=== PATIENT | male | born 1975 | race African-American/Black ===

== ENCOUNTER 2020-05-30 10:47 | Observation (INO) | payer OTHER ==
--- NOTE | 2020-05-30 11:03 | ER Document Report ---
ED General - General Chief Complaint: Chest Pain Stated Complaint: CHEST PAIN Time Seen by Provider: 05/30/20 10:54 Notes: 44-year-old male smoker with other medical history being irrelevant presents with chest pressure onset about 30 minutes ago after receiving a phone call that was troubling from his fiance. He says it hurts in a severe fashion radiates to his shoulders and he has shortness of breath and sweatiness. No vomiting. No leg pain or swelling no pleuritic component. No history of aortic disease or cardiac disease. - Related Data Allergies/Adverse Reactions: iodine Allergy (Verified 05/30/20 11:39) Penicillins Allergy (Verified 05/30/20 11:39) shellfish derived Adverse Reaction (Verified 05/30/20 11:39) Past Medical History - General Information source: Patient - Social History Smoking Status: Current Every Day Smoker Smoking Education Provided: Yes - The patient ED visit today was directly related to their abuse of tobacco. Family History: None Physical Exam - Vital signs Vitals: Temp Pulse Resp BP Pulse Ox 98.2 F 74 18 114/75 99 05/30/20 10:55 05/30/20 10:55 05/30/20 10:55 05/30/20 10:55 05/30/20 10:55 Course - Re-evaluation Re-evalutation: 05/30/20 11:34 Patient presents with concerning chest pain. His EKG is nonspecific but not normal. His heart score is about 4. We will give him aspirin nitroglycerin. We will repeat his EKG and check labs I doubt this is dissection pancreatitis or other severe cause of chest pain 05/30/20 14:56 Labs negative. Pain better with nitro and aspirin. Patient's heart score is [address] Julian will be admitted. Doubt PE dissection pancreatitis Pain-free in the ED. Accepted for admission. - Vital Signs Vital signs: Temp Pulse Resp BP Pulse Ox 98.2 F 74 23 H 110/79 98 05/30/20 10:55 05/30/20 10:55 05/30/20 13:01 05/30/20 13:01 05/30/20 13:00 - Laboratory Result Diagrams: 05/30/20 11:10 05/30/20 11:10 Laboratory results interpreted by me: 05/30/20 05/30/20 11:10 11:10 MCV 77 L MCH 26.7 L RDW 14.4 H Sodium 136.9 L Potassium 3.5 L Creatine Kinase 256 H Total Protein 8.3 H - Diagnostic Test Radiology reviewed: Pending - EKG Interpretation by Me EKG shows normal: Sinus rhythm Rate: Normal Rhythm: NSR When compared to previous EKG there are: Previous EKG unavailable - 1.: RSR prime in V2 without true ST elevation 2.: Same unchanged sinus rhythm narrow complexes no ST-T wave changes Discharge - Discharge Clinical Impression: Chest pain, unspecified Qualifiers: Chest pain type: other chest pain Qualified Code(s): R07.89 - Other chest pain Condition: Fair Disposition: ADMITTED OBSERVATION Admitting Provider: Nayely (Hospitalist) Unit Admitted: Telemetry
[2020-05-30] MEDS ORDERED: NITROGLYCERIN 0.4 MG/TAB 25 TAB/BOTTLE SL PRN ×2 (11:06→14:14)
[2020-05-30] MEDS ORDERED: ASPIRIN 325 MG TABLET PO ONE (11:06)
[2020-05-30 11:21] LABS: ABSOLUTE BASOPHILS # (AUTO) 0.1 10^3/uL (0.0-0.2); ABSOLUTE EOSINOPHILS # (AUTO) 0.2 10^3/uL (0.0-0.6); ABSOLUTE MONOCYTES (AUTO) 0.6 10^3/uL (0.1-1.4); ABSOLUTE NEUT (AUTO) 4.4 10^3/uL (1.7-8.2); BASOPHILS % (AUTO) 1.4 % (0-2); EOSINOPHILS % (AUTO) 2.8 % (0-6); HEMATOCRIT 41.5 % (37.9-51.0); HEMOGLOBIN 14.3 g/dL (13.5-17.0); LYMPHOCYTES % (AUTO) 26.7 % (13-45); MEAN CORPUSCULAR HEMOGLOBIN 26.7 pg (27.0-33.4); MEAN CORPUSCULAR HGB CONC 34.5 g/dL (32.0-36.0); MEAN CORPUSCULAR VOLUME 77 fl (80-97); MONOCYTES % (AUTO) 8.8 % (3-13); PLATELET COUNT 226 10^3/uL (150-450); RED BLOOD COUNT 5.37 10^6/uL (4.35-5.55); RED CELL DISTRIBUTION WIDTH 14.4 % (11.5-14.0); SEGMENTED NEUTROPHILS % (AUTO) 60.3 % (42-78); TOTAL CELLS COUNTED % (AUTO) 100 %; WHITE BLOOD COUNT 7.3 10^3/uL (4.0-10.5)
[2020-05-30 11:45] LABS: ALBUMIN 4.9 g/dL (3.5-5.0); ALKALINE PHOSPHATASE 76 U/L (38-126); ANION GAP 7 (5-19); ASPARTATE AMINO TRANSFERASE 29 U/L (17-59); BILIRUBIN,TOTAL 0.9 mg/dL (0.2-1.3); BLOOD UREA NITROGEN 16 mg/dL (7-20); CARBON DIOXIDE 28 mmol/L (22-30); CHLORIDE 102 mmol/L (98-107); CREATINE KINASE 256 U/L (55-170); GLUCOSE 101 mg/dL (75-110); POTASSIUM 3.5 mmol/L (3.6-5.0); TOTAL PROTEIN 8.3 g/dL (6.3-8.2)
[2020-05-30 11:55] LABS: CREATINE KINASE MB 1.27 ng/mL (<4.55); TROPONIN I < 0.012 ng/mL
[2020-05-30] MEDS ORDERED: TEMAZEPAM 15 MG CAPSULE PO PRN (14:11)
[2020-05-30] MEDS ORDERED: MAGNESIUM HYDROXIDE SUSP 30 ML UDCUP PO PRN (14:11)
[2020-05-30] MEDS ORDERED: PROMETHAZINE HCL INJ 25 MG/1 ML VIAL IV PRN (14:11)
[2020-05-30] MEDS ORDERED: ACETAMINOPHEN 325 MG TABLET PO PRN (14:11)
[2020-05-30] MEDS ORDERED: OXYCODONE-ACETAMINOPHEN 5-325 MG TABLET PO PRN (14:11)
[2020-05-30] MEDS ORDERED: IPRATROPIUM/ALBUTEROL 0.5-2.5 MG/3 ML AMPUL NEB PRN (14:11)
[2020-05-30] MEDS ORDERED: ONDANSETRON HCL INJ/PF 4 MG/2 ML SDV IV PRN (14:11)
[2020-05-30] MEDS ORDERED: METOPROLOL TARTRATE PF/INJ 5 MG/5 ML SDV IV PRN (14:13)
[2020-05-30] MEDS ORDERED: MORPHINE SULFATE 10 MG/ML INJ IV PRN (14:14)
[2020-05-30 15:23] LABS: CHOLESTEROL 197.35 mg/dL (0-200); TRIGLYCERIDES 82 mg/dL (<150)
[2020-05-30 15:33] LABS: DIRECT LDL 134 mg/dL (<100)
[2020-05-30 15:40] LABS: FREE T4 (FREE THYROXINE) 1.2 ng/dL (0.78-2.19)
[2020-05-30 15:54] LABS: THYROID STIMULATING HORMONE 0.38 uIU/mL (0.47-4.68)
[2020-05-30 16:09] VITALS: BP 124/75
--- NOTE | 2020-05-30 16:27 | EKG REPORT ---
SEVERITY:- BORDERLINE ECG - SINUS RHYTHM ST ELEV, PROBABLE NORMAL EARLY REPOL PATTERN LEFT ATRIAL ABNORMALITY : Confirmed by: Moises Mckeon MD 30-May-2020 16:27:08
--- NOTE | 2020-05-30 16:28 | EKG REPORT ---
SEVERITY:- BORDERLINE ECG - SINUS ARRHYTHMIA LEFT ATRIAL ABNORMALITY : Confirmed by: Moises Mckeon MD 30-May-2020 16:27:51
[2020-05-30] MEDS ORDERED: FAMOTIDINE 20 MG TABLET PO SCH (22:00)
[2020-05-31] MEDS ORDERED: ENOXAPARIN SODIUM INJ 40 MG/0.4 ML DISP.SYRIN SUBCUT SCH (10:00)
== END 2020-05-30 16:00 | disposition left against medical advice (07) ==
LOC: ER 10:47 → EH 13:05
PROVIDERS: ADMIT Internal Medicine; ATTEND Internal Medicine
DX: R07.89 Other chest pain (principal); F17.200 Nicotine dependence, unspecified, uncomplicated; R06.02 Shortness of breath; R61 Generalized hyperhidrosis
CPT/HCPCS: 36415; 80053; 80061; 82550; 82553; 83036; 84439; 84443; 84484; 85025; 93005; 93010; 99285

== ENCOUNTER 2020-05-31 13:31 | Observation (INO) | payer SELFPAY ==
--- NOTE | 2020-05-31 13:53 | ER Document Report ---
ED General - General Chief Complaint: Chest Pain Stated Complaint: CHEST PAIN Time Seen by Provider: 05/31/20 13:47 Notes: 44-year-old male seen here yesterday for concerning chest pain heart score 5- troponin abnormal EKG better with nitro admitted then AMA back for care. States that he got very nervous and scared so he left. In speaking with hospitalist Dr. Wolfe the patient was scheduled for a stress test at 1. He had a surgical consult for chronic foot wounds and a cards consult for chest pain which recommended stress test at 1 PM. He is currently having pain and is quite anxious.. - Related Data Allergies/Adverse Reactions: iodine Allergy (Verified 05/31/20 13:42) Penicillins Allergy (Verified 05/31/20 13:42) shellfish derived Adverse Reaction (Verified 05/31/20 13:42) Home Medications: atb for infected tooth Past Medical History - Social History Smoking Status: Current Every Day Smoker Chew tobacco use (# tins/day): No Frequency of alcohol use: None Drug Abuse: None Family History: None Patient has homicidal ideation: No Review of Systems - Review of Systems Notes: REVIEW OF SYSTEMS GEN: Denies fever, chills, weight loss ENT: Denies sore throat, nasal discharge, ear pain EYES: Denies blurry vision, eye pain, discharge CV: Pain RESP: Denies cough, shortness of breath, wheezing GI: Denies abdominal pain, nausea, vomiting, diarrhea MSK: Denies joint pain/swelling, edema, SKIN: Denies rash, skin lesions LYMPH: Denies swollen glands/lymph nodes NEURO: Denies headache, focal weakness or numbness, dizziness PSYCH: Denies depression, suicidal or homicidal ideation PHYSICAL EXAMINATION General: Full clutching chest. No acute distress, well-nourished Head: Atraumatic, normocephalic ENT: Mouth normal, oropharynx moist, no exudates or tonsillar enlargement Eyes: Conjunctiva normal, pupils equal, lids normal Neck: No JVD, supple, no guarding CVS: Normal rate, regular rhythm, no murmurs Resp: No resp distress, equal and normal breath sounds bilaterally GI: Nondistended, soft, no tenderness to palpation, no rebound or guarding Ext: No deformities, no edema, normal range of motion in upper and lower ext Back: No CVA or midline TTP Skin: No rash, warm Lymphatic: No lymphadeopathy noted Neuro: Awake, alert. Face symmetric. GCS 15. Physical Exam - Vital signs Vitals: Temp 99.3 F 05/31/20 13:42 Course - Re-evaluation Re-evalutation: 05/31/20 14:03 Chest pain AMA now back chest pain is back. Could be anxiety would still need stress test EKG unchanged Trope pending Will admit to hospitalist 05/31/20 15:46 Discussed with Nayely for admission - Vital Signs Vital signs: Temp Pulse Resp BP Pulse Ox 99.3 F 20 103/60 98 05/31/20 13:42 05/31/20 15:01 05/31/20 15:01 05/31/20 15:01 - Laboratory Result Diagrams: 05/31/20 15:04 05/31/20 15:04 Laboratory results interpreted by me: 05/31/20 05/31/20 15:04 15:04 MCV 78 L MCH 26.5 L Creatinine 1.61 H Est GFR ( Amer) 57 L Est GFR (MDRD) Non-Af 47 L - Diagnostic Test Radiology reviewed: Image reviewed, Reports reviewed - EKG Interpretation by Me EKG shows normal: Sinus rhythm Rate: Normal Rhythm: NSR - R prime V2 no ST depression Unchanged from prior When compared to previous EKG there are: No significant change Discharge - Discharge Clinical Impression: Chest pain, unspecified Qualifiers: Chest pain type: unspecified Qualified Code(s): R07.9 - Chest pain, unspecified Condition: Good Disposition: ADMITTED OBSERVATION Admitting Provider: [place] (Hospitalist) Unit Admitted: Telemetry
[2020-05-31] MEDS ORDERED: ASPIRIN 81 MG TABLET, CHEWABLE PO ONE (13:54)
--- NOTE | 2020-05-31 13:55 | ER Document Report ---
ED Medical Screen (RME) - General Chief Complaint: Chest Pain Stated Complaint: CHEST PAIN Time Seen by Provider: 05/31/20 13:47 Notes: HPI: 44-year-old male presenting to the emergency department with continued chest discomfort and shortness of breath. States he was seen yesterday and was to be admitted to the hospital for further evaluation of chest pain that began yesterday after an argument with his fiance but became scared about having possible surgery and decided to leave AGAINST MEDICAL ADVICE. States symptoms continued today. PHYSICAL EXAMINATION: Lung sounds are clear to auscultation, regular rate and rhythm. Patient is tearful and scared Discussed with Dr. Wilson, Attending I have greeted and performed a rapid initial assessment of this patient. A comprehensive ED assessment and evaluation of the patient, analysis of test results and completion of medical decision making process will be conducted by an additional ED providers. - Related Data Allergies/Adverse Reactions: iodine Allergy (Verified 05/31/20 13:42) Penicillins Allergy (Verified 05/31/20 13:42) shellfish derived Adverse Reaction (Verified 05/31/20 13:42) Home Medications: atb for infected tooth Past Medical History - Social History Chew tobacco use (# tins/day): No Frequency of alcohol use: None Drug Abuse: None Physical Exam - Vital signs Vitals: Temp 99.3 F 05/31/20 13:42 Course - Vital Signs Vital signs: Temp Pulse Resp BP Pulse Ox 99.3 F 05/31/20 13:42 Doctor's Discharge - Discharge Clinical Impression: Chest pain, unspecified Qualifiers: Chest pain type: unspecified Qualified Code(s): R07.9 - Chest pain, unspecified
[2020-05-31] MEDS ORDERED: NITROGLYCERIN 0.4 MG/TAB 25 TAB/BOTTLE SL PRN (14:37)
[2020-05-31 15:20] LABS: ABSOLUTE BASOPHILS # (AUTO) 0.1 10^3/uL (0.0-0.2); ABSOLUTE EOSINOPHILS # (AUTO) 0.2 10^3/uL (0.0-0.6); ABSOLUTE LYMPHOCYTES (AUTO) 1.6 10^3/uL (0.5-4.7); ABSOLUTE MONOCYTES (AUTO) 0.6 10^3/uL (0.1-1.4); ABSOLUTE NEUT (AUTO) 4.4 10^3/uL (1.7-8.2); BASOPHILS % (AUTO) 1.4 % (0-2); EOSINOPHILS % (AUTO) 3.3 % (0-6); HEMATOCRIT 42.2 % (37.9-51.0); HEMOGLOBIN 14.4 g/dL (13.5-17.0); LYMPHOCYTES % (AUTO) 23.1 % (13-45); MEAN CORPUSCULAR HEMOGLOBIN 26.5 pg (27.0-33.4); MEAN CORPUSCULAR HGB CONC 34.2 g/dL (32.0-36.0); MEAN CORPUSCULAR VOLUME 78 fl (80-97); MONOCYTES % (AUTO) 8.6 % (3-13); PLATELET COUNT 234 10^3/uL (150-450); RED BLOOD COUNT 5.44 10^6/uL (4.35-5.55); SEGMENTED NEUTROPHILS % (AUTO) 63.6 % (42-78); TOTAL CELLS COUNTED % (AUTO) 100 %; WHITE BLOOD COUNT 6.8 10^3/uL (4.0-10.5)
[2020-05-31 15:26] LABS: INTERNATIONAL RATION (INR) 1.01; PROTHROMBIN TIME 13.3 SEC (11.4-15.4)
[2020-05-31 15:39] LABS: ALBUMIN 4.7 g/dL (3.5-5.0); ALKALINE PHOSPHATASE 64 U/L (38-126); ANION GAP 7 (5-19); ASPARTATE AMINO TRANSFERASE 24 U/L (17-59); BILIRUBIN,TOTAL 0.7 mg/dL (0.2-1.3); BLOOD UREA NITROGEN 15 mg/dL (7-20); CALCIUM 9.7 mg/dL (8.4-10.2); CARBON DIOXIDE 30 mmol/L (22-30); CHLORIDE 100 mmol/L (98-107); GLUCOSE 94 mg/dL (75-110); POTASSIUM 4.2 mmol/L (3.6-5.0)
[2020-05-31] MEDS ORDERED: OXYCODONE-ACETAMINOPHEN 5-325 MG TABLET PO PRN (15:39)
[2020-05-31] MEDS ORDERED: PROMETHAZINE HCL INJ 25 MG/1 ML VIAL IV PRN (15:39)
[2020-05-31] MEDS ORDERED: TEMAZEPAM 7.5 MG CAPSULE PO PRN (15:39)
[2020-05-31] MEDS ORDERED: ONDANSETRON HCL INJ/PF 4 MG/2 ML SDV IV PRN (15:39)
[2020-05-31] MEDS ORDERED: IPRATROPIUM/ALBUTEROL 0.5-2.5 MG/3 ML AMPUL NEB PRN (15:39)
[2020-05-31] MEDS ORDERED: NORMAL SALINE 1000 ML 1,000 ML IV PRN ×2 (15:39→18:32)
[2020-05-31] MEDS ORDERED: ACETAMINOPHEN 325 MG TABLET PO PRN (15:39)
[2020-05-31] MEDS ORDERED: MORPHINE SULFATE 10 MG/ML INJ IV PRN (15:43)
[2020-05-31] MEDS ORDERED: METOPROLOL TARTRATE PF/INJ 5 MG/5 ML SDV IV PRN (15:47)
[2020-05-31] MEDS ORDERED: HYDRALAZINE HCL INJ/PF 20 MG/1 ML SDV IV PRN (15:48)
[2020-05-31] MEDS: TERBINAFINE HCL 250 MG TABLET PO SCH (17:35)
--- NOTE | 2020-05-31 18:21 | EKG REPORT ---
SEVERITY:- BORDERLINE ECG - SINUS RHYTHM ST ELEV, PROBABLE NORMAL EARLY REPOL PATTERN LA ENLARGEMENT : Confirmed by: Moises Mckeon MD 31-May-2020 18:20:28
--- NOTE | 2020-05-31 18:31 | PDOC H&P ---
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 Today he is presenting to ED complaining of chest pain, epigastric, pressure- like, lasted about 30 minutes, constant, radiating to shoulder, associated with shortness of breath and diaphoresis. Denies any headache, vision changes, numbness, tingling, vomiting, abdominal pain, diarrhea, constipation, urinary symptoms, orthopnea, proximal nocturnal dyspnea, weight changes, lightheadedness, palpitation, syncope or presyncope. In ED troponins were negative and EKG did not show any significant changes. Social History Smoking Status: Current Every Day Smoker Electronic Cigarette use?: No Family History Family History: None Parental Family History Reviewed: Yes Children Family History Reviewed: Yes Sibling(s) Family History Reviewed.: Yes Medication/Allergy Home Medications: RX: Fluoxetine HCl 20 mg PO QAM 30 Days #30 capsule 06/01/20 RX: Pantoprazole Sodium 40 mg PO DAILY 28 Days #28 tablet. 06/01/20 RX: Terbinafine HCl [Lamisil 250 mg Tablet] 250 mg PO DAILY 12 Days #12 tablet 06/01/20 Allergies/Adverse Reactions: iodine Allergy (Verified 05/31/20 13:42) Penicillins Allergy (Verified 05/31/20 13:42) shellfish derived Adverse Reaction (Verified 05/31/20 13:42) Review of Systems Review of Systems: as per hpi Physical Exam Vital Signs: Temp Pulse Resp BP Pulse Ox 99.0 F 82 25 H 119/73 96 05/31/20 18:01 05/31/20 13:41 05/31/20 18:01 05/31/20 18:01 05/31/20 18:01 Intake & Output 05/30/20 05/31/20 06/01/20 06:59 06:59 06:59 Weight 83.915 kg General appearance: PRESENT: mild distress Head exam: PRESENT: atraumatic, normocephalic Respiratory exam: PRESENT: clear to auscultation elisabeth, tachypnea. ABSENT: rales, rhonchi, wheezes Cardiovascular exam: PRESENT: RRR, tachycardia. ABSENT: diastolic murmur, rubs, systolic murmur GI/Abdominal exam: PRESENT: normal bowel sounds, soft. ABSENT: distended, guarding, mass, organolmegaly, rebound, tenderness Extremities exam: PRESENT: full ROM, other - Severe bilateral tinea pedis.. ABSENT: calf tenderness, clubbing, pedal edema Neurological exam: PRESENT: alert, awake, oriented to person, oriented to place, oriented to time, oriented to situation, CN II-XII grossly intact. ABSENT: motor sensory deficit Results Laboratory Results: 05/31/20 15:04 05/31/20 15:04 05/31/20 05/31/20 15:04 15:04 WBC 6.8 RBC 5.44 Hgb 14.4 Hct 42.2 MCV 78 L MCH 26.5 L MCHC 34.2 RDW 14.0 Plt Count 234 Seg Neutrophils % 63.6 Sodium 137.2 Potassium 4.2 Chloride 100 Carbon Dioxide 30 Anion Gap 7 BUN 15 Creatinine 1.61 H Est GFR ( Amer) 57 L Glucose 94 Calcium 9.7 Total Bilirubin 0.7 AST 24 Alkaline Phosphatase 64 Total Protein 8.0 Albumin 4.7 05/31/20 15:04 Troponin I < 0.012 Assessment and Plan - Diagnosis (1) Chest pain, unspecified Qualifiers: Chest pain type: unspecified Qualified Code(s): R07.9 - Chest pain, unspecified Is this a current diagnosis for this admission?: Yes Plan: Unlikely cardiac. Denies any personal or family history of CAD. Denies any history of hypertension, dyslipidemia or diabetes. History of tobacco abuse. Admit to telemetry, trend troponins, antiplatelets, statins, sublingual nitroglycerin, IV morphine, beta-blockers, SHAILESH, stress test for further risk stratification. (2) Tinea pedis Qualifiers: Laterality: bilateral Qualified Code(s): B35.3 - Tinea pedis Is this a current diagnosis for this admission?: Yes Plan: Severe bilateral tinea pedis. 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 We will start on terbinafine, monitor LFTs. Outpatient rate setter follow-up. Good hygiene recommended. (3) Tobacco abuse Is this a current diagnosis for this admission?: Yes Plan: Extensively counseled on quitting. NicoDerm patch provided. (4) DANA (acute kidney injury) Is this a current diagnosis for this admission?: Yes Plan: Prerenal. Mostly due to nausea vomiting. Cautious volume restriction guided by volume status. Monitor electrolytes replace as needed. Monitor volume status. Avoid nephrotoxic meds. (5) Depression with anxiety Is this a current diagnosis for this admission?: Yes
[2020-05-31] MEDS: NICOTINE 21 MG/24 HR PATCH.TD24 TD SCH (19:57)
[2020-05-31] MEDS ORDERED: ATORVASTATIN CALCIUM 40 MG TABLET PO SCH (22:00)
[2020-05-31] MEDS: FAMOTIDINE 20 MG TABLET PO SCH (23:25)
[2020-05-31] MEDS: ENOXAPARIN SODIUM INJ 80 MG/0.8 ML DISP.SYRIN SUBCUT SCH (23:25)
[2020-06-01 08:14] LABS: ABSOLUTE BASOPHILS # (AUTO) 0.1 10^3/uL (0.0-0.2); ABSOLUTE EOSINOPHILS # (AUTO) 0.2 10^3/uL (0.0-0.6); ABSOLUTE LYMPHOCYTES (AUTO) 1.5 10^3/uL (0.5-4.7); ABSOLUTE MONOCYTES (AUTO) 0.5 10^3/uL (0.1-1.4); ABSOLUTE NEUT (AUTO) 3.3 10^3/uL (1.7-8.2); BASOPHILS % (AUTO) 1.2 % (0-2); EOSINOPHILS % (AUTO) 3.5 % (0-6); HEMATOCRIT 41.3 % (37.9-51.0); HEMOGLOBIN 14.1 g/dL (13.5-17.0); LYMPHOCYTES % (AUTO) 26.5 % (13-45); MEAN CORPUSCULAR HEMOGLOBIN 26.4 pg (27.0-33.4); MEAN CORPUSCULAR HGB CONC 34.2 g/dL (32.0-36.0); MEAN CORPUSCULAR VOLUME 77 fl (80-97); MONOCYTES % (AUTO) 8.8 % (3-13); PLATELET COUNT 202 10^3/uL (150-450); RED BLOOD COUNT 5.35 10^6/uL (4.35-5.55); RED CELL DISTRIBUTION WIDTH 14.5 % (11.5-14.0); TOTAL CELLS COUNTED % (AUTO) 100 %; WHITE BLOOD COUNT 5.6 10^3/uL (4.0-10.5)
[2020-06-01 08:36] LABS: ALBUMIN 4.4 g/dL (3.5-5.0); ALKALINE PHOSPHATASE 66 U/L (38-126); ANION GAP 8 (5-19); ASPARTATE AMINO TRANSFERASE 24 U/L (17-59); BILIRUBIN,TOTAL 0.6 mg/dL (0.2-1.3); BLOOD UREA NITROGEN 21 mg/dL (7-20); CALCIUM 9.5 mg/dL (8.4-10.2); CARBON DIOXIDE 25 mmol/L (22-30); CHLORIDE 104 mmol/L (98-107); GLUCOSE 98 mg/dL (75-110); POTASSIUM 3.8 mmol/L (3.6-5.0); TOTAL PROTEIN 7.5 g/dL (6.3-8.2)
[2020-06-01] MEDS ORDERED: DOCUSATE SODIUM 100 MG CAPSULE PO SCH (10:00)
[2020-06-01] MEDS ORDERED: ASPIRIN 81 MG TABLET, CHEWABLE PO SCH (10:00)
[2020-06-01] MEDS: FAMOTIDINE 20 MG TABLET PO SCH (12:45)
[2020-06-01] MEDS: TERBINAFINE HCL 250 MG TABLET PO SCH (12:46)
[2020-06-01] MEDS: NICOTINE 21 MG/24 HR PATCH.TD24 TD SCH (12:46)
[2020-06-01] MEDS: ENOXAPARIN SODIUM INJ 80 MG/0.8 ML DISP.SYRIN SUBCUT SCH (12:47)
[2020-06-01] MEDS ORDERED: REGADENOSON INJ 0.4 MG/5 ML DISP.SYRIN IV ONE (13:36)
[2020-06-01 14:54] LABS: APPEARANCE,URINE CLEAR; BILIRUBIN,URINE NEGATIVE (NEGATIVE); COLOR,URINE YELLOW; GLUCOSE, URINE NEGATIVE (NEGATIVE); KETONES,URINE NEGATIVE (NEGATIVE); LEUKOCYTE ESTERASE,URINE NEGATIVE (NEGATIVE); NITRITE,URINE NEGATIVE (NEGATIVE); PROTEIN,URINE NEGATIVE (NEGATIVE); URINE SPECIFIC GRAVITY 1.013; UROBILINOGEN,URINE NEGATIVE mg/dL (<2.0)
[2020-06-01] MEDS ORDERED: FLUOXETINE HCL 20 MG CAPSULE PO SCH (17:00)
[2020-06-01 21:52] VITALS: BP 121/63
--- NOTE | 2020-06-03 01:22 | DRAGON STRESS TEST REPORT ---
Intravenous Lexiscan Cardiolite stress test using single photon emmision computerized tomography. Date of procedure: .Ordering Provider: Patient's status: In Patient. Indication: Chest pain. Coronary risk factors: Age. Resting EKG: Sinus Rhythm Within normal limits. Stress EKG: No changes of ischemia. The patient had no chest pain or discomfort, and there were no arrhythmias seen. Reason for termination: Protocol. Conclusions: Normal EKG and hemodynamic response to IV Lexiscan. Nuclear data: At rest the patient was given 12.66 millicuries of technetium 99m sestamibi injected intravenously. As per protocol rest non gated SPECT images were obtained. Subsequently the patient was given intravenous Lexiscan at a dose of 0.4 mg in 5 mL intravenously, followed by flush with normal saline. Subsequently the stress dose of 36.8 millicuries of technetium 99m sestamibi was injected intravenously. As per protocol stress gated images were obtained. Nuclear interpretation: Review of images showed that all segments of the myocardium had normal perfusion at rest, and normal perfusion post stress with IV Lexiscan. All segments of the myocardium had normal motion, contraction, and thickening by gated study. T. I D. ratio was normal at 1.15. There is no transient ischemic dilatation of the left ventricle. Computer read rest, and stress left ventricular ejection fraction were 51 %, and 52 %, respectively. Visually both the stress and rest ejection fractions were normal, and greater than 55%. Conclusion: 1. There is no scintigraphic evidence of Lexiscan induced myocardial ischemia. 2. There is no scintigraphic evidence of myocardial infarction/scar. [facility]
--- NOTE | 2020-06-03 14:18 | PDOC H&P ---
History of Present Illness Admission Date/PCP: 05/31/20 15:50 Past Medical History Psychiatric Medical History: Reports: Depression Social History Smoking Status: Current Every Day Smoker Electronic Cigarette use?: No Drugs: Marijuana - Advance Directive Resuscitation Status: Full Code Family History Family History: None Parental Family History Reviewed: Yes Children Family History Reviewed: Yes Sibling(s) Family History Reviewed.: Yes Medication/Allergy Home Medications: Fluoxetine HCl 20 mg PO QAM 30 Days #30 capsule 06/01/20 Pantoprazole Sodium 40 mg PO DAILY 28 Days #28 tablet. 06/01/20 Terbinafine HCl [Lamisil 250 mg Tablet] 250 mg PO DAILY 12 Days #12 tablet 06/01/20 Allergies/Adverse Reactions: iodine Allergy (Verified 05/31/20 13:42) Penicillins Allergy (Verified 05/31/20 13:42) shellfish derived Adverse Reaction (Verified 05/31/20 13:42) Physical Exam Vital Signs: Temp Pulse Resp BP Pulse Ox 98.7 F 61 18 121/63 98 06/01/20 21:49 06/01/20 21:49 06/01/20 21:49 06/01/20 21:49 06/01/20 21:49 Intake & Output 06/02/20 06/03/20 06/04/20 06:59 06:59 06:59 Intake Total 1640 Balance 1640 Results Laboratory Results: 06/01/20 07:53 06/01/20 07:53 05/31/20 05/31/20 06/01/20 15:04 18:49 00:50 Troponin I < 0.012 < 0.012 < 0.012 06/01/20 07:53 Troponin I < 0.012 Assessment and Plan - Diagnosis (1) Chest pain, unspecified Qualifiers: Chest pain type: unspecified Qualified Code(s): R07.9 - Chest pain, unspecified Is this a current diagnosis for this admission?: Yes (2) Tinea pedis Qualifiers: Laterality: bilateral Qualified Code(s): B35.3 - Tinea pedis Is this a current diagnosis for this admission?: Yes (3) Tobacco abuse Is this a current diagnosis for this admission?: Yes (4) DANA (acute kidney injury) Is this a current diagnosis for this admission?: Yes (5) Depression with anxiety Is this a current diagnosis for this admission?: Yes
--- NOTE | 2020-06-03 14:27 | PDOC DISCHARGE SUMMARY ---
Impression - Admit/DC Date/PCP Admission Date/Primary Care Provider: 05/31/20 15:50 Discharge Date: 06/01/20 - Discharge Diagnosis (1) Chest pain, unspecified Is this a current diagnosis for this admission?: Yes (2) Tinea pedis Is this a current diagnosis for this admission?: Yes (3) Tobacco abuse Is this a current diagnosis for this admission?: Yes (4) DANA (acute kidney injury) Is this a current diagnosis for this admission?: Yes (5) Depression with anxiety Is this a current diagnosis for this admission?: Yes - Additional Information Resuscitation Status: Full Code Discharge Diet: As Tolerated Discharge Activity: Activity As Tolerated Referrals: LORENA MASON MD [NO LOCAL MD] - 06/07/20 1:30 pm (PLEASE STOP BY OFFICE PRIOR TO VISIT TO FILL OUT NEW PATIENT PAPERWORK AND HAVE THEM OBTAIN YOUR INSURANCE INFORMATION TO MAKE SURE YOU ARE IN NETWORK. OTHER POTTER YOUR APPOINTMENT FEE WILL BE $200.) Prescriptions: RX: Fluoxetine HCl 20 mg PO QAM 30 Days #30 capsule RX: Terbinafine HCl [Lamisil 250 mg Tablet] 250 mg PO DAILY 12 Days #12 tablet RX: Pantoprazole Sodium 40 mg PO DAILY 28 Days #28 tablet.dr Nunez Medications: RX: Fluoxetine HCl 20 mg PO QAM 30 Days #30 capsule 06/01/20 RX: Pantoprazole Sodium 40 mg PO DAILY 28 Days #28 tablet. 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 Today he is presenting to ED complaining of chest pain, epigastric, pressure- like, lasted about 30 minutes, constant, radiating to shoulder, associated with shortness of breath and diaphoresis. Denies any headache, vision changes, numbness, tingling, vomiting, abdominal pain, diarrhea, constipation, urinary symptoms, orthopnea, proximal nocturnal dyspnea, weight changes, lightheadedness, palpitation, syncope or presyncope. In ED troponins were negative and EKG did not show any significant changes. Hospital Course Hospital Course: (1) Chest pain, unspecified Unlikely cardiac. Troponins negative. EKG no acute changes. Denies any personal or family history of CAD. History of tobacco abuse. Denied history of hypertension, dyslipidemia or diabetes. Likely depressions could be be esophageal spasm, Prinzmetal angina ,panic attack or GERD. Patient endorses history of depression anxiety and having severe panic attacks. Was admitted to telemetry, trended troponins, antiplatelets, statins, sublingual nitroglycerin, IV morphine, beta-blockers, SHAILESH. A stress test was ordered. Lipid panel W. TSH elevated. A1c WNL. Stress nuclear back negative. Was discharged on pantoprazole 40 mg daily for 4 weeks for presumptive GERD. (2) Tinea pedis Severe bilateral tinea pedis. 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 Started start on terbinafine for 2 weeks. Advised follow-up basic PCP for LFT monitoring. Advised to follow-up with embossing calender operator. Advised on good hygiene. (3) Tobacco abuse Extensively counseled on quitting. NicoDerm patch provided. (4) DANA (acute kidney injury) Resolved. Prerenal. Mostly due to nausea vomiting. Was a started on cautious volume restriction guided by volume status. Monitor electrolytes replace as needed. Monitor volume status. Avoid nephrotoxic meds. (5) Depression with anxiety Patient endorses history of depression and anxiety and suffers from anxiety attack. Denied any homicidal or suicidal ideation. Was a started on Prozac 20 mg daily. Patient was advised to follow-up with PCP and psychiatrist. Physical Exam Vital Signs: Temp Pulse Resp BP Pulse Ox 98.7 F 61 18 121/63 98 06/01/20 21:49 06/01/20 21:49 06/01/20 21:49 06/01/20 21:49 06/01/20 21:49 Intake & Output 06/02/20 06/03/20 06/04/20 06:59 06:59 06:59 Intake Total 1640 Balance 1640 General appearance: PRESENT: no acute distress, well-developed, well-nourished Head exam: PRESENT: atraumatic, normocephalic Eye exam: PRESENT: conjunctiva pink, EOMI, PERRLA. ABSENT: scleral icterus Ear exam: PRESENT: normal external ear exam Mouth exam: PRESENT: moist, tongue midline Neck exam: ABSENT: carotid bruit, JVD, lymphadenopathy, thyromegaly Respiratory exam: PRESENT: clear to auscultation elisabeth. ABSENT: rales, rhonchi, wheezes Cardiovascular exam: PRESENT: RRR. ABSENT: diastolic murmur, rubs, systolic mur mur Pulses: PRESENT: normal dorsalis pedis pul Vascular exam: PRESENT: normal capillary refill GI/Abdominal exam: PRESENT: normal bowel sounds, soft. ABSENT: distended, guarding, mass, organolmegaly, rebound, tenderness Rectal exam: PRESENT: deferred Extremities exam: PRESENT: full ROM, other - Bilateral feet severe tinea pedis.. ABSENT: calf tenderness, clubbing, pedal edema Neurological exam: PRESENT: alert, awake, oriented to person, oriented to place, oriented to time, oriented to situation, CN II-XII grossly intact. ABSENT: motor sensory deficit Psychiatric exam: PRESENT: appropriate affect, normal mood. ABSENT: homicidal ideation, suicidal ideation Skin exam: PRESENT: dry, intact, warm. ABSENT: cyanosis, rash Results Laboratory Results: WBC 5.6 10^3/uL (4.0-10.5) 06/01/20 07:53 RBC 5.35 10^6/uL (4.35-5.55) 06/01/20 07:53 Hgb 14.1 g/dL (13.5-17.0) 06/01/20 07:53 Hct 41.3 % (37.9-51.0) 06/01/20 07:53 MCV 77 fl (80-97) L 06/01/20 07:53 MCH 26.4 pg (27.0-33.4) L 06/01/20 07:53 MCHC 34.2 g/dL (32.0-36.0) 06/01/20 07:53 RDW 14.5 % (11.5-14.0) H 06/01/20 07:53 Plt Count 202 10^3/uL (150-450) 06/01/20 07:53 Lymph % (Auto) 26.5 % (13-45) 06/01/20 07:53 Dare % (Auto) 8.8 % (3-13) 06/01/20 07:53 Eos % (Auto) 3.5 % (0-6) 06/01/20 07:53 Baso % (Auto) 1.2 % (0-2) 06/01/20 07:53 Absolute Neuts (auto) 3.3 10^3/uL (1.7-8.2) 06/01/20 07:53 Absolute Lymphs (auto) 1.5 10^3/uL (0.5-4.7) 06/01/20 07:53 Absolute Monos (auto) 0.5 10^3/uL (0.1-1.4) 06/01/20 07:53 Absolute Eos (auto) 0.2 10^3/uL (0.0-0.6) 06/01/20 07:53 Absolute Basos (auto) 0.1 10^3/uL (0.0-0.2) 06/01/20 07:53 Seg Neutrophils % 60.0 % (42-78) 06/01/20 07:53 PT 13.3 SEC (11.4-15.4) 05/31/20 15:04 INR 1.01 05/31/20 15:04 Sodium 137.2 mmol/L (137-145) 06/01/20 07:53 Potassium 3.8 mmol/L (3.6-5.0) 06/01/20 07:53 Chloride 104 mmol/L (98-107) 06/01/20 07:53 Carbon Dioxide 25 mmol/L (22-30) 06/01/20 07:53 Anion Gap 8 (5-19) 06/01/20 07:53 BUN 21 mg/dL (7-20) H 06/01/20 07:53 Creatinine 1.03 mg/dL (0.52-1.25) 06/01/20 07:53 Est GFR ( Amer) > 60 (>60) 06/01/20 07:53 Est GFR (MDRD) Non-Af > 60 (>60) 06/01/20 07:53 Glucose 98 mg/dL (75-110) 06/01/20 07:53 Hemoglobin A1c % 5.7 % (4.7-6.0) 06/01/20 17:29 Calcium 9.5 mg/dL (8.4-10.2) 06/01/20 07:53 Magnesium 2.2 mg/dL (1.6-2.3) 06/01/20 07:53 Total Bilirubin 0.6 mg/dL (0.2-1.3) 06/01/20 07:53 Direct Bilirubin 0.0 mg/dL (0.0-0.4) 06/01/20 07:53 Neonat Total Bilirubin Not Reportable 06/01/20 07:53 Neonat Direct Bilirubin Not Reportable 06/01/20 07:53 Neonat Indirect Bili Not Reportable 06/01/20 07:53 AST 24 U/L (17-59) 06/01/20 07:53 ALT 17 U/L (<50) 06/01/20 07:53 Alkaline Phosphatase 66 U/L (38-126) 06/01/20 07:53 Troponin I < 0.012 ng/mL 06/01/20 07:53 Total Protein 7.5 g/dL (6.3-8.2) 06/01/20 07:53 Albumin 4.4 g/dL (3.5-5.0) 06/01/20 07:53 TSH 0.50 uIU/mL (0.47-4.68) 06/01/20 17:29 Urine Color YELLOW 06/01/20 14:39 Urine Appearance CLEAR 06/01/20 14:39 Urine pH 6.0 (5.0-9.0) 06/01/20 14:39 Ur Specific [place] 1.013 06/01/20 14:39 Urine Protein NEGATIVE mg/dL (NEGATIVE) 06/01/20 14:39 Urine Glucose (UA) NEGATIVE mg/dL (NEGATIVE) 06/01/20 14:39 Urine Ketones NEGATIVE mg/dL (NEGATIVE) 06/01/20 14:39 Urine Blood NEGATIVE (NEGATIVE) 06/01/20 14:39 Urine Nitrite NEGATIVE (NEGATIVE) 06/01/20 14:39 Urine Bilirubin NEGATIVE (NEGATIVE) 06/01/20 14:39 Urine Urobilinogen NEGATIVE mg/dL (<2.0) 06/01/20 14:39 Ur Leukocyte Esterase NEGATIVE (NEGATIVE) 06/01/20 14:39 Urine WBC (Auto) 0 /HPF 06/01/20 14:39 Urine Mucus (Auto) RARE /LPF 06/01/20 14:39 Urine Ascorbic Acid NEGATIVE (NEGATIVE) 06/01/20 14:39 05/31/20 05/31/20 06/01/20 15:04 18:49 00:50 Troponin I < 0.012 < 0.012 < 0.012 06/01/20 07:53 Troponin I < 0.012 Stroke Is this a Stroke Patient?: No Acute Heart Failure - Is this a Heart Failure Patient?: No
== END 2020-06-01 22:00 | disposition home or self-care (01) ==
LOC: ER 13:31 → EH 15:50 → 4S 18:31
PROVIDERS: ADMIT Internal Medicine; ATTEND Internal Medicine
DX: R07.89 Other chest pain (principal); B35.3 Tinea pedis; N17.9 Acute kidney failure, unspecified; F41.8 Other specified anxiety disorders; R06.02 Shortness of breath; F17.200 Nicotine dependence, unspecified, uncomplicated; Z79.899 Other long term (current) drug therapy
CPT/HCPCS: 93005; 99285; 36415 ×2; 83735; 84443; 85025 ×2; 85610; 80053 ×2; 81001; 84484 ×2; 83036; 93017; 78452; 93010; A9500; J2785; J3490 ×2; J1650 ×2; Q9969; G0378

== ENCOUNTER 2020-11-10 18:49 | Emergency (ER) | payer SELFPAY ==
--- NOTE | 2020-11-10 19:24 | ER Document Report ---
ED Medical Screen (RME) - General Chief Complaint: Psych Problem Stated Complaint: PSYCH EVAL Time Seen by Provider: 11/10/20 19:01 Mode of Arrival: Ambulatory Information source: Patient Notes: Patient is a 45-year-old male comes the emergency room voluntarily for severe depression and suicidal ideation. According to patient he has any history of depression in the past has been off medication for years. States that he has situational problems with his family i.e. his children who do not live with him for 20 to 23 years old as well as his fiance who has a 15-year-old that lives with him. Patient states he has been feeling less of a man lately because he is not be able to interact with his fiance regularly and on good terms he states they are arguing all the time. Patient states that he is here because he is having increasing thoughts of suicide ideation. He actually sold the only gun he owns because he is afraid he might use it. Currently has no plan of action at this time. Patient does state that he has been told he has possibility of having early stages of renal failure but he has not seen a doctor for this yet at all. He denies having any medications currently and denies any other medical problems. Patient states that he has recently stopped smoking marijuana and thinks this may be contributing to part of his problem because he is not coping as well. 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 Physical examination: Patient is a well-nourished well-developed 45-year-old male was in no apparent distress on examination but does appear somewhat teary when asking for help. Multiple times in the interview patient has broken down and cried. Cardiac: Patient shows slightly bradycardic rate of 58 bpm on the pulse ox machine but no murmurs were auscultated. Lungs: Bilateral breath sounds breath sounds increased clear to auscultation. Abdomen: Bowel sounds present all 4 quads nontender to palpate. Neuro: Patient is awake alert and oriented x4. Psych: Patient is moderately depressed and during his conversation displays a flat affect and some discussion about suicide ideation without any plan. Patient is here voluntarily because he feels he needs help and is the first time he is asked for help. I have greeted and performed a rapid initial assessment of this patient. A comprehensive ED assessment and evaluation of the patient, analysis of test results and completion of the medical decision making process will be conducted by additional ED providers. Dictation of this chart was performed using voice recognition software; therefore, there may be some unintended grammatical errors. - Related Data Allergies/Adverse Reactions: iodine Allergy (Verified 11/10/20 18:56) Penicillins Allergy (Verified 11/10/20 18:56) shellfish derived Adverse Reaction (Verified 11/10/20 18:56) Past Medical History Psychiatric Medical History: Reports: Hx Depression Physical Exam - Vital signs Vitals: Temp Pulse Resp BP Pulse Ox 98.4 F 58 L 16 120/75 97 11/10/20 18:56 11/10/20 18:56 11/10/20 18:56 11/10/20 18:56 12 18:56 Course - Vital Signs Vital signs: Temp Pulse Resp BP Pulse Ox 98.4 F 58 L 16 120/75 97 11/10/20 18:56 11/10/20 18:56 11/10/20 18:56 11/10/20 18:56 11/10/20 18:56
[2020-11-10 19:56] LABS: ABSOLUTE BASOPHILS # (AUTO) 0.1 10^3/uL (0.0-0.2); ABSOLUTE EOSINOPHILS # (AUTO) 0.2 10^3/uL (0.0-0.6); ABSOLUTE LYMPHOCYTES (AUTO) 2.3 10^3/uL (0.5-4.7); ABSOLUTE MONOCYTES (AUTO) 0.5 10^3/uL (0.1-1.4); EOSINOPHILS % (AUTO) 1.9 % (0-6); HEMATOCRIT 42.8 % (37.9-51.0); HEMOGLOBIN 14.3 g/dL (13.5-17.0); LYMPHOCYTES % (AUTO) 28.8 % (13-45); MEAN CORPUSCULAR HEMOGLOBIN 26.2 pg (27.0-33.4); MEAN CORPUSCULAR HGB CONC 33.5 g/dL (32.0-36.0); MEAN CORPUSCULAR VOLUME 78 fl (80-97); PLATELET COUNT 226 10^3/uL (150-450); RED BLOOD COUNT 5.47 10^6/uL (4.35-5.55); RED CELL DISTRIBUTION WIDTH 15.1 % (11.5-14.0); SEGMENTED NEUTROPHILS % (AUTO) 62.3 % (42-78); TOTAL CELLS COUNTED % (AUTO) 100 %; WHITE BLOOD COUNT 8.1 10^3/uL (4.0-10.5)
[2020-11-10 20:06] LABS: APPEARANCE,URINE CLEAR; BILIRUBIN,URINE NEGATIVE (NEGATIVE); COLOR,URINE YELLOW; GLUCOSE, URINE NEGATIVE (NEGATIVE); KETONES,URINE NEGATIVE (NEGATIVE); LEUKOCYTE ESTERASE,URINE NEGATIVE (NEGATIVE); NITRITE,URINE NEGATIVE (NEGATIVE); PROTEIN,URINE NEGATIVE (NEGATIVE); URINE SPECIFIC GRAVITY 1.013; UROBILINOGEN,URINE NEGATIVE mg/dL (<2.0)
[2020-11-10 20:17] LABS: ALBUMIN 3.9 g/dL (3.5-5.0); ALKALINE PHOSPHATASE 52 U/L (38-126); ANION GAP 5 (5-19); ASPARTATE AMINO TRANSFERASE 27 U/L (17-59); BILIRUBIN,DIRECT 0.1 mg/dL (0.0-0.4); BILIRUBIN,TOTAL 0.3 mg/dL (0.2-1.3); BLOOD UREA NITROGEN 10 mg/dL (7-20); CALCIUM 9.3 mg/dL (8.4-10.2); CARBON DIOXIDE 28 mmol/L (22-30); CHLORIDE 105 mmol/L (98-107); GLUCOSE 104 mg/dL (75-110); POTASSIUM 3.9 mmol/L (3.6-5.0); TOTAL PROTEIN 6.6 g/dL (6.3-8.2)
[2020-11-10 20:20] LABS: ACETAMINOPHEN < 10 ug/mL (10-30); ALCOHOL < 10 mg/dL (NONE DETECTED); SALICYLATE < 1.0 mg/dL (2.0-20.0)
[2020-11-10 20:27] LABS: URINE AMPHETAMINES SCREEN NEGATIVE; URINE BARBITURATES SCREEN NEGATIVE; URINE BENZODIAZEPINES SCREEN NEGATIVE; URINE COCAINE SCREEN NEGATIVE; URINE MARIJUANA (THC) SCREEN NEGATIVE; URINE METHADONE SCREEN NEGATIVE; URINE PHENCYCLIDINE SCREEN NEGATIVE
--- NOTE | 2020-11-10 23:14 | ER Document Report ---
ED General - General Chief Complaint: Psych Problem Stated Complaint: PSYCH EVAL Time Seen by Provider: 11/10/20 19:01 Mode of Arrival: Ambulatory - HPI Notes: Chief Complaint: Historian: History obtained from patient and significant other HPI: This is a 45-year-old male who presents to the ED with complaints of worsening bipolar and depressive symptoms since stopping his Prozac 1 month ago. Patient significant other works in the ER as a tech and is present during my interview. Patient describes multiple labile episodes daily of feeling okay and then going into a deep depression. He has had fleeting thoughts of suicidal ideation but no set plan. For example, patient describes having a thought of throwing himself out of the moving car at times and also thought of shooting himself but there are no guns in the home as he sold it a while ago. Denies any prior suicide attempts. He also has episodes of paranoia for example accusing his significant other of cheating on him even though he knows that she is faithful. He says he lost his support system since they moved to [place] and feels "alone". He was treated in his 20s with other psychiatric medications, monthly shots, but he is unsure of the names of this. He has been maintaining okay on the Prozac 20 mg daily but still had similar symptoms just not as severe. He has been off Prozac for 1 month. Patient has no plan to harm himself and is taking no concrete steps to hurt himself. He denies auditory hallucinations or visual hallucinations. They have already schedule close follow-up with mental health have an appointment Thursday morning. Patient also starts a new job on Thursday and is very resistant to remaining in the ER until then. Patient and significant other want him to be restarted on his Prozac and possibly another medicine to calm him down and then to discharge home and go to his follow-up psych appointment. ROS: Constitutional: no fevers. HEENT: no ANGELO, sore throat, or vision changes. CV: no chest pain or palpitations. Resp: no cough or SOB. GI: no abdominal pain, or n/v/d. : no dysuria, hematuria, or incont. MSK: no back pain, no joint swelling/redness. Skin: no rashes or itching. Neuro: no seizures, weakness, numbness, or confusion. Hematological: no ecchymosis or easy bleeding. Endocrine: no polyuria/polydipsia, no heat/cold intolerance. Psych: no SI/HI, AH/VH or memory loss. PMHx: Reviewed and agree as charted by RN. PSHx: Reviewed and agree as charted by RN. SOCHx: Reviewed and agree as charted by RN. FHX: No significant familial comorbid conditions directly related to patient complaint Current Medications: Reviewed and agree with the patient medications as charted by the RN. Allergies: Reviewed and agree with the listed allergies as charted by the RN Physical Exam: Vitals: Reviewed in chart as documented by RN. General: Alert and in NAD. Head: Normocephalic; atraumatic Eyes: PERRLA, Conjunctivae clear sclerae non-icteric bilat ENT: no soft palate swelling or uvular deviation Neck: trachea midline, no unilateral swelling/tenderness/lymphadenopathy CV: RRR, no M/R/G; symmetric distal pulses Resp: respirations even and unlabored, CTA bilat. GI: abd soft and nondistended. NTTP. normal BS. no masses/HSM. no CVAT bilat MSK: FROM of all extremities. No midline CTL spine tenderness/deformity Skin: warm, moist, good turgor. no rash/lesions Neuro: Alert and oriented X 4. following CN 2-12 intact. no unilateral weakness/numbness Psych: Fleeting thoughts of SI. Paranoia. Labileperiods of depression then returned to baseline. Speech is clear and nonpressured. Patient actually has decent insight into his illness and affects of his illness on those around him. ED Results: Medical Decision-Making: differential includes psychosis, primary psychiatric d/o, bipolar, anival, schizophrenia, substance abuse, dep/anxiety, SI, delusions, metabolic abnormality, intracranial abnormality, infectious process, encephalopathy, ect plan- psych workup- labs, etoh, UDS, psych consult prn. discussed case extensively w/ my ER attending Dr Beckman who also evaluated the pt. pt has no active SI/HI and will contract for safety. 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 Pt is adamant he will return tomorrow at 10am to be evaluated by psych. no indication for involuntary commitment overnight. I will not prescribe any medications to him to encourage pt to keep plan of psych f/u in the morning. strict return factors discussed. Pt is in agreement w/ this plan. : - Related Data Allergies/Adverse Reactions: iodine Allergy (Verified 11/10/20 18:56) Penicillins Allergy (Verified 11/10/20 18:56) shellfish derived Adverse Reaction (Verified 11/10/20 18:56) Past Medical History - General Information source: Patient - Social History Smoking Status: Unknown if Ever Smoked Family History: None Psychiatric Medical History: Reports: Hx Depression Physical Exam - Vital signs Vitals: Temp Pulse Resp BP Pulse Ox 98.4 F 58 L 16 120/75 97 11/10/20 18:56 11/10/20 18:56 11/10/20 18:56 11/10/20 18:56 11/10/20 18:56 Course - Re-evaluation Re-evalutation: 11/10/20 23:18 labs reviewed and reassuring. tox screens negative. - Vital Signs Vital signs: Temp Pulse Resp BP Pulse Ox 98.4 F 58 L 16 120/75 97 11/10/20 18:56 11/10/20 18:56 11/10/20 18:56 11/10/20 18:56 11/10/20 18:56 - Laboratory Results Result Diagrams: 11/10/20 19:37 11/10/20 19:37 Laboratory Results Interpreted: 11/10/20 11/10/20 19:37 19:37 MCV 78 L MCH 26.2 L RDW 15.1 H Salicylates < 1.0 L Acetaminophen < 10 L Critical Laboratory Results Reviewed: No Critical Results - Radiology Results Critical Radiology Results Reviewed: No Critical Results Discharge - Discharge Clinical Impression: Depression with anxiety Condition: Stable Disposition: HOME, SELF-CARE Instructions: Bipolar Disorder ([facility]) Additional Instructions: return to the ER tomorrow morning after your meeting to be evaluated by psychiatry. if there is any concern of harming yourself or anyone else, then immediately return to the ER. Referrals: KOKI DING MD [ACTIVE STAFF] - Follow up as needed
--- NOTE | 2020-11-11 00:06 | ER Document Report ---
Doctor's Note Notes: 11/11/20 00:04 Patient seen in conjunction with the physician dental chairside assistant, please see his note correlate with mine. In short this is a 45-year-old male with a history of bipolar disorder, who was on Prozac since the summer, came off of it about a month ago. He has had increasing suicidal thoughts, mood lability. He states that he is in danger of losing his relationship. He has had passive suicidal thoughts, but has never tried to hurt himself. He denies any suicidal or homicidal ideation. He actually has a job on Thursday that he is starting. He states he believes he would like to get counseling, which he has not yet set up, and start back on Prozac. I reviewed this patient's labs and we talked at length. In short, this patient does report a history of bipolar disorder and did well on Prozac, but I do believe that sitting up with therapy, and an evaluation by the psychosocial team for medication is appropriate. The patient is not actively suicidal or homicidal. He states he has a "personal meeting" that he has to attend to 8 AM tomorrow morning. He states he believes it would last about 3 hours. He wants to speak to the psychosocial team, start medication, and set up counseling. At this point I do not see any reason to keep him in here involuntarily overnight. He is not an active danger to himself or others. He is interested in getting help. He seems to have insight into his illness and his need for counseling/medication. I agree that the patient can be safely discharged at this time. He is told that if his symptoms worsen he needs to return immediately. Otherwise he is encouraged to follow-up here tomorrow during the daytime hours, at which time he can be seen by the psychosocial team, have a full evaluation, medication recommendations, and counseling.
[2020-11-11 02:25] VITALS: BP 103/66
--- NOTE | 2020-11-11 20:42 | EKG REPORT ---
SEVERITY:- NORMAL ECG - SINUS RHYTHM ST ELEV, PROBABLE NORMAL EARLY REPOL PATTERN : Confirmed by: Janis Morin MD 11-Nov-2020 20:41:44
== END 2020-11-11 01:15 | disposition home or self-care (01) ==
LOC: ER 18:49
DX: F32.9 Major depressive disorder, single episode, unspecified (principal); F41.9 Anxiety disorder, unspecified; F22 Delusional disorders; Z79.899 Other long term (current) drug therapy; Z88.0 Allergy status to penicillin; Z88.8 Allergy status to other drugs, medicaments and biological substances
CPT/HCPCS: 36415; 80053; 80307; 81001; 85025; 93005; 93010; 99285